=== PATIENT | male | born 1990 | race Caucasian/White ===

== ENCOUNTER 2016-11-11 15:31 | Emergency (ER) | payer SELFPAY ==
[~2016-11-11] VITALS: Ht 172.7 cm; Wt 83.6 kg
[2016-11-11 15:35] VITALS: BP 121/65
--- NOTE | 2016-11-11 15:38 | NUR ---
Pt taken to bed 5
--- NOTE | 2016-11-11 15:38 | NUR ---
26M BIB FAMILY C/O LEFT EYE IRRITATION X YESTERDAY. PT STATES WAS AT [facility] YESTERDAY AND WOKE UP WITH PAIN. DENIES N/V/D; SKIN IS PINK/WARM/DRY; AAOX4 WITH EVEN AND STEADY GAIT; LUNGS CLEAR BL; HR EVEN AND REGULAR; PT DENIES ANY FEVER, CP, SOB, OR COUGH AT THIS TIME; PATIENT STATES PAIN OF 8/10 AT THIS TIME; VSS; PATIENT POSITIONED FOR COMFORT; HOB ELEVATED; BEDRAILS UP X2; BED DOWN. ER MD MADE AWARE OF PT STATUS.
--- NOTE | 2016-11-11 15:39 | NUR ---
ER MD DR GUTIERREZ EVALUATING PT AT BEDSIDE
--- NOTE | 2016-11-11 15:40 | NUR ---
ER MD DR GUTIERREZ EVALUATING PT AT BEDSIDE
--- NOTE | 2016-11-11 16:00 | NUR ---
Patient discharged with v/s stable. Written and verbal after care instructions given and explained. Patient alert, oriented and verbalized understanding of instructions. Ambulatory with steady gait. All questions addressed prior to discharge. ID band removed. Patient advised to follow up with PMD. Rx of TOBRADEX OPHTHALMIC SUSPENSION, TYLENOL W CODEINE NO 3 given. Patient educated on indication of medication including possible reaction and side effects. Opportunity to ask questions provided and answered.
[2016-11-11 16:02] VITALS: BP 116/61
== END 2016-11-11 16:00 | disposition home or self-care (01) ==
LOC: MED 15:31
DX: H00.014 Hordeolum externum left upper eyelid (principal)
CPT/HCPCS: 99283

== ENCOUNTER 2019-04-26 14:12 | Emergency (ER) | payer OTHER ==
[~2019-04-26] VITALS: Ht 172.7 cm; Wt 87.5 kg
[2019-04-26 14:50] VITALS: BP 154/102
--- NOTE | 2019-04-26 14:55 | NUR ---
WAIT AT LOBBY.
--- NOTE | 2019-04-26 15:52 | NUR ---
PT AMBULATED TO BED 04
[2019-04-26] MEDS ORDERED: BACITRACIN OINT 500 UNITS/GM PKT TP ONE (16:35)
[2019-04-26] MEDS ORDERED: LIDOCAINE MPF 1% 10 MG/ML VIAL INJ ONE (16:35)
[2019-04-26] MEDS ORDERED: IBUPROFEN 600 MG TAB PO ONE (16:35)
--- NOTE | 2019-04-26 18:12 | NUR ---
APPLIED NON AHDERENT DRESSING TO RIGHT BIG TOE AND ORTHO SHOE TO RIGHT FOOT WITHOUT ANY ISSUES
[2019-04-26 18:14] VITALS: BP 134/75
--- NOTE | 2019-04-26 18:14 | NUR ---
Patient discharged with v/s stable. Written and verbal after care instructions given and explained. Patient verbalized understanding. Ambulatory with steady gait. All questions addressed prior to discharge. Advised to follow up with PMD.
== END 2019-04-26 18:14 | disposition home or self-care (01) ==
LOC: MED 14:12
DX: L60.0 Ingrowing nail (principal); M79.674 Pain in right toe(s)
CPT/HCPCS: 11730; 99283; J2001

== ENCOUNTER 2019-09-07 12:52 | Emergency (ER) | payer OTHER ==
[~2019-09-07] VITALS: Ht 175.3 cm; Wt 89.4 kg
[2019-09-07 12:55] VITALS: BP 116/69
--- NOTE | 2019-09-07 13:02 | NUR ---
Patient ambulated to bed 11. RN evaluating patient at bedside.
--- NOTE | 2019-09-07 13:03 | NUR ---
C/O PAIN, REDNESS & SWELLING TO LEFT FACE & LEFT FOOT S/P POSSIBLE BUG BITE X TODAY. MED HX: DENIES. PATIENT STATES PAIN OF 7/10 AT THIS TIME. PATIENT POSITIONED FOR COMFORT; HOB ELEVATED; BEDRAILS UP X1; BED DOWN. ER MD MADE AWARE OF PT STATUS.
--- NOTE | 2019-09-07 13:22 | NUR ---
Patient discharged with v/s stable. Written and verbal after care instructions given and explained. Patient alert, oriented and verbalized understanding of instructions. Ambulatory with steady gait. All questions addressed prior to discharge. ID band removed. Patient advised to follow up with PMD. Rx of [employer] HYDROCORTISONE given. Patient educated on indication of medication including possible reaction and side effects. Opportunity to ask questions provided and answered.
[2019-09-07 13:23] VITALS: BP 116/69
== END 2019-09-07 13:22 | disposition home or self-care (01) ==
LOC: MED 12:52
DX: S80.862A Insect bite (nonvenomous), left lower leg, initial encounter (principal); S00.86XA Insect bite (nonvenomous) of other part of head, initial encounter; W57.XXXA Bitten or stung by nonvenomous insect and other nonvenomous arthropods, initial encounter; Y93.89 Activity, other specified; Y92.89 Other specified places as the place of occurrence of the external cause; Y99.8 Other external cause status
CPT/HCPCS: 99282

== ENCOUNTER 2020-09-05 17:36 | Emergency (ER) | payer OTHER ==
[~2020-09-05] VITALS: Ht 172.7 cm; Wt 93.9 kg
[2020-09-05 17:49] VITALS: BP 117/84
--- NOTE | 2020-09-05 17:56 | NUR ---
Pt ambulated to ER bed 1 with a steady gait.
--- NOTE | 2020-09-05 18:03 | NUR ---
30 y/o male c/o toe pain 8/10 from left ingrown toenail x 1 week worst when walking on it. Redness and swelling noted to area. Pt states he applied rubbing alcohol and hydrogen peroxide and wrapped in gauze prior to arrival. Pt denies N/V, denies fever/chills. Denies PMH NKA
--- NOTE | 2020-09-05 18:29 | NUR ---
Dr. Lacy is evaluating the patient at bedside.
[2020-09-05] MEDS: LIDOCAINE 2% 1000 MG/50 ML VIAL INJ ONE (18:39)
[2020-09-05] MEDS ORDERED: HYD2.5O TP (19:00)
--- NOTE | 2020-09-05 19:11 | NUR ---
Gave report to MALIA Yeager. Transfer of care at this time.
--- NOTE | 2020-09-05 19:12 | NUR ---
RECEIVED REPORT FROM RHONAD FINLEY. PT IN BED RESTING WITH HOB ELEVATED. PT NOT IN DISTRESS. NO COMPLAINTS OR REQUESTS MADE AT THIS TIME. SUTURE SET UP AT BEDSIDE, AWAITING PROCEDURE.
--- NOTE | 2020-09-05 19:30 | NUR ---
DR. DENSON AT BEDSIDE DOING TOE PROCEDURE.
--- NOTE | 2020-09-05 19:55 | NUR ---
EMT at bedside placing dressing on patient's toe.
[2020-09-05 20:00] VITALS: BP 131/93
--- NOTE | 2020-09-05 20:00 | NUR ---
Patient discharged with v/s stable. Written and verbal after care instructions given and explained. Patient alert, oriented and verbalized understanding of instructions. Ambulatory with steady gait. All questions addressed prior to discharge. ID band removed. Patient advised to follow up with PMD. Rx of Hydrocortisone given. Patient educated on indication of medication including possible reaction and side effects. Opportunity to ask questions provided and answered.
== END 2020-09-05 20:00 | disposition home or self-care (01) ==
LOC: MED 17:36
DX: L60.0 Ingrowing nail (principal); L20.9 Atopic dermatitis, unspecified
CPT/HCPCS: 11730; 99284; J2001

== ENCOUNTER 2020-11-21 19:23 | Emergency (ER) | payer OTHER ==
[~2020-11-21] VITALS: Ht 172.7 cm; Wt 98.9 kg
[~2020-11-21 19:23] MED LIST: HYD2.5O TP
[2020-11-21 19:26] VITALS: BP 121/70
--- NOTE | 2020-11-21 19:29 | NUR ---
SURY A/W BED AMBULATORY
[2020-11-21 20:31] LABS: BASOPHILS # (AUTO) 0.1 K/uL (0.00-0.22); BASOPHILS % (AUTO) 0.6 % (0.0-2.0); EOSINOPHILS # (AUTO) 0.4 K/uL (0-0.4); EOSINOPHILS % (AUTO) 3.8 % (0.0-4.0); HEMATOCRIT 45.5 % (36-52); HEMOGLOBIN 15.6 g/dL (12.0-18.0); LYMPHOCYTES # (AUTO) 3.3 K/uL (2.0-11.5); LYMPHOCYTES % (AUTO) 33.3 % (20.5-51.1); MEAN CORPUSCULAR HEMOGLOBIN 32 pg (27-31); MEAN CORPUSCULAR HGB CONC 34 g/dL (33-37); MONOCYTES # (AUTO) 0.6 K/uL (0.8-1.0); NEUTROPHILS # (AUTO) 5.5 K/uL (1.8-7.7); NEUTROPHILS % (AUTO) 56.3 % (42.2-75.2); PLATELET COUNT (AUTO) 408 K/uL (140-450); RED BLOOD CELL COUNT(AUTO) 4.95 MIL/uL (4.20-6.10); RED CELL DISTRIBUTION WIDTH 12.9 % (11.6-13.7); WHITE BLOOD COUNT (AUTO) 9.8 K/uL (4.8-10.8)
[2020-11-21 20:53] LABS: ALBUMIN 4.2 g/dL (3.4-5.0); ANION GAP 15.3 (8-16); CARBON DIOXIDE 25.5 mmol/L (21-32); CREATININE 0.9 mg/dL (0.6-1.3); POTASSIUM 3.8 mmol/L (3.5-5.1); TOTAL BILIRUBIN 0.7 mg/dL (0.0-1.0)
--- NOTE | 2020-11-21 21:00 | NUR ---
SEEN AND EXAMINED BY GENARO WITH ORDERS AND CARRIED OUT.
[2020-11-21] MEDS ORDERED: ONDANSETRON 4 MG ODT PO ONE (21:15)
[2020-11-21] MEDS ORDERED: FAMO-92 PO (21:21)
[2020-11-21] MEDS ORDERED: ONDA-24 PO (21:21)
--- NOTE | 2020-11-21 21:30 | NUR ---
ALL LAB RESULTS BACK AND NOTED BY ERMD AND FOR D/C
--- NOTE | 2020-11-21 21:30 | NUR ---
MEDICATED PER ERMDS ORDER, TOLERATED WELL.
[2020-11-21 22:05] VITALS: BP 119/78
--- NOTE | 2020-11-21 22:05 | NUR ---
Patient discharged with v/s stable. Written and verbal after care instructions given and explained. Patient alert, oriented and verbalized understanding of instructions. Ambulatory with steady gait. All questions addressed prior to discharge. ID band removed. Patient advised to follow up with PMD. Rx of PEPCID , ZOFRAN ODT given. Patient educated on indication of medication including possible reaction and side effects. Opportunity to ask questions provided and answered.
== END 2020-11-21 22:05 | disposition home or self-care (01) ==
LOC: MED 19:23
DX: K29.20 Alcoholic gastritis without bleeding (principal); R11.2 Nausea with vomiting, unspecified; Z79.899 Other long term (current) drug therapy
CPT/HCPCS: 36415; 80053; 83690; 85025; 99283; Q0162

== ENCOUNTER 2021-01-11 14:06 | Emergency (ER) | payer OTHER ==
[~2021-01-11] VITALS: Ht 160 cm; Wt 93.9 kg
[~2021-01-11 14:06] MED LIST changes: +FAMO-92 PO; +ONDA-24 PO
[2021-01-11 14:22] VITALS: BP 147/86
[2021-01-11] MEDS ORDERED: CEPH-588 PO (14:41)
[2021-01-11] MEDS ORDERED: NAPR-54 PO (14:41)
[2021-01-11] MEDS ORDERED: HYD1C TP (14:41)
--- NOTE | 2021-01-11 14:49 | NUR ---
Patient discharged with v/s stable. Written and verbal after care instructions given and explained. Patient alert, oriented and verbalized understanding of instructions. Ambulatory with steady gait. All questions addressed prior to discharge. ID band removed. Patient advised to follow up with PMD. Rx of Hydrocortisone, Cephalexin and Naproxen given. Patient educated on indication of medication including possible reaction and side effects. Opportunity to ask questions provided and answered.
== END 2021-01-11 14:49 | disposition home or self-care (01) ==
LOC: MED 14:06
DX: S60.861A Insect bite (nonvenomous) of right wrist, initial encounter (principal); W57.XXXA Bitten or stung by nonvenomous insect and other nonvenomous arthropods, initial encounter; Y93.89 Activity, other specified; Y92.89 Other specified places as the place of occurrence of the external cause; Y99.8 Other external cause status
CPT/HCPCS: 99283

== ENCOUNTER 2022-03-28 16:02 | Emergency (ER) | payer OTHER ==
[~2022-03-28 16:02] MED LIST changes: +CEPH-588 PO; +HYD1C TP; +NAPR-54 PO; +ONDA-188 PO; -ONDA-24 PO
--- NOTE | 2022-03-28 16:17 | NUR ---
[email or web address]. NO SHOW. Addendum: 03/28/22 at 1620 by [facility] Amendment undone in EDM - 03/28/22 at 1620 by [email or web address] PATIENT LEFT WITHOUT BEING SEEN BY PA CORTEZ. NO FURTHER CARE PROVIDED FOR PATIENT. Addendum: 03/28/22 at 1621 by [email or web address] PATIENT LEFT WITHOUT BEING SEEN BY PA CORTEZ. NO FURTHER CARE PROVIDED FOR PATIENT.
--- NOTE | 2022-03-28 16:19 | NUR ---
CALLED [phone]. PT STATED" I AM ON THE WAY TO [facility]".
== END 2022-03-28 16:19 | disposition left against medical advice (07) ==
LOC: MED 16:02
DX: J02.9 Acute pharyngitis, unspecified (principal); Z53.21 Procedure and treatment not carried out due to patient leaving prior to being seen by health care provider

== ENCOUNTER 2022-08-09 09:18 | Emergency (ER) | payer SELFPAY ==
[~2022-08-09] VITALS: Ht 172.7 cm; Wt 95.3 kg
[2022-08-09 09:40] VITALS: BP 134/75
--- NOTE | 2022-08-09 09:50 | NUR ---
32/M WALKED IN C/O LEFT HAND PAIN AND SWELLING S/P FALLING WHILE SKATEBOARDING. PT REPORTS LANDING ON LEFT ARM. DENIES LOC OR TRAUMA TO HEAD. PMH: DENIES
--- NOTE | 2022-08-09 10:32 | NUR ---
PT WENT TO XR
--- NOTE | 2022-08-09 11:41 | NUR ---
L WRIST SPLINT - GUTTER SPLINT APPLIED. + CMS. ADDISON WRAP X 2.
== END 2022-08-09 11:35 | disposition home or self-care (01) ==
LOC: MED 09:18
DX: S62.337A Displaced fracture of neck of fifth metacarpal bone, left hand, initial encounter for closed fracture (principal); Z79.899 Other long term (current) drug therapy; Z79.1 Long term (current) use of non-steroidal anti-inflammatories (NSAID); Z79.2 Long term (current) use of antibiotics; W01.0XXA Fall on same level from slipping, tripping and stumbling without subsequent striking against object, initial encounter; Y92.89 Other specified places as the place of occurrence of the external cause; Y93.89 Activity, other specified; Y99.8 Other external cause status
CPT/HCPCS: 73130; 99283